=== PATIENT | female | born 1995 | race African-American/Black ===

== ENCOUNTER 2017-03-30 18:15 | Emergency (ER) | payer OTHER ==
[~2017-03-30] VITALS: Ht 170.2 cm; Wt 113.0 kg
[~2017-03-30 18:15] MED LIST: AMOXICILLIN500 MG PO; AMOXIL400 MG/5 M PO; AUGMENTINES600 PO; CIPRO HC AD; DENIES CURRENT MEDS; MOTRIN200 MG PO; NAPROSYN500 MG PO; NO MEDS; TRAMADOL HCL50 MG OR; ZOFRAN ODT4 MG PO
[2017-03-30 19:33] LABS: INFLUENZA A NONE DETECTED (NONE DETECT); INFLUENZA B NONE DETECTED (NONE DETECT)
[2017-03-30] MEDS ORDERED: AMOXICILLIN500 MG PO (19:45)
[2017-03-30 19:59] VITALS: BP 128/72
== END 2017-03-30 19:59 | disposition home or self-care (01) | DRG 153 ==
LOC: ED 18:15
PROVIDERS: Emergency Medicine
DX: J06.9 Acute upper respiratory infection, unspecified (principal); J02.9 Acute pharyngitis, unspecified; R09.81 Nasal congestion; M54.2 Cervicalgia; R09.89 Other specified symptoms and signs involving the circulatory and respiratory systems; R50.9 Fever, unspecified

== ENCOUNTER 2017-06-19 16:25 | Emergency (ER) | payer OTHER ==
[~2017-06-19] VITALS: Ht 170.2 cm; Wt 113.0 kg
[2017-06-19] MEDS ORDERED: MOTRIN400 MG PO (17:40)
[2017-06-19 17:50] VITALS: BP 129/74
== END 2017-06-19 17:50 | disposition home or self-care (01) | DRG 552 ==
LOC: ED 16:25
DX: S16.1XXA Strain of muscle, fascia and tendon at neck level, initial encounter (principal); X58.XXXA Exposure to other specified factors, initial encounter

== ENCOUNTER 2018-02-23 21:16 | Emergency (ER) | payer MEDICAID ==
[~2018-02-23] VITALS: Ht 350.5 cm; Wt 110.0 kg
[~2018-02-23 21:16] MED LIST changes: +MOTRIN400 MG PO
[2018-02-23] MEDS ORDERED: AMOXICILLIN500 MG PO (22:10)
[2018-02-23 22:21] VITALS: BP 130/62
== END 2018-02-23 22:21 | disposition home or self-care (01) ==
LOC: ED 21:16
DX: J02.9 Acute pharyngitis, unspecified (principal); R05 Cough; R06.7 Sneezing; R51 Headache

== ENCOUNTER 2018-05-31 03:56 | Emergency (ER) | payer MEDICAID ==
[~2018-05-31] VITALS: Ht 172.7 cm; Wt 90.9 kg
[2018-05-31 04:40] VITALS: BP 114/71
== END 2018-05-31 04:42 | disposition home or self-care (01) ==
LOC: ED 03:56
DX: S90.02XA Contusion of left ankle, initial encounter (principal); W21.89XA Striking against or struck by other sports equipment, initial encounter; Y93.51 Activity, roller skating (inline) and skateboarding; Y92.331 Roller skating rink as the place of occurrence of the external cause

== ENCOUNTER 2018-09-09 12:03 | Emergency (ER) | payer MEDICAID ==
[~2018-09-09] VITALS: Ht 172.7 cm; Wt 91.0 kg
[2018-09-09 13:04] LABS: HEMATOCRIT 40.8 % (37.0-47.0); HEMOGLOBIN 13.7 g/dl (12.0-16.0); IMMATURE GRANULOCYTES 0.2 % (0.0-5.0); MEAN CELL VOLUME 90.3 fL CALC (80.0-100.0); MEAN CORPUSCULAR HGB 30.3 pG CALC (26.0-32.0); MEAN CORPUSCULAR HGB CONC 33.6 g/L CALC (32.0-36.0); NEUT# 3.47 thou/uL (2.00-7.15); RED BLOOD COUNT 4.52 mill/uL (4.20-5.60); RED CELL DISTRI WIDTH 12.7 % (11.5-15.5)
[2018-09-09 13:14] LABS: ALBUMIN 4.3 g/dL (3.2-5.0); ALKALINE PHOSPHATASE 94 u/l (38-126); AMYLASE 78 u/l (30-110); ANION GAP 14 (6-22 (CALC)); BUN 14 mg/dL (7-17); BUN/CREATININE RATIO 20 (12-20 (CALC)); CARBON DIOXIDE 23 mmol/l (22-30); CHLORIDE 106 mmol/l (95-108); CREATININE 0.7 mg/dL (0.5-1.0); GFR > 60 ML/MIN (>=60 (CALC)); GFR FOR AFR.AMER. > 60 ML/MIN (>=60 (CALC)); LIPASE 156 u/l (23-300); POTASSIUM 4.1 mmol/l (3.5-5.1); SGOT/AST 31 u/l (14-36); SODIUM 140 mmol/l (137-146); TOTAL PROTEIN 7.7 g/dL (6.3-8.2)
[2018-09-09 13:17] LABS: BILIRUBIN, TOTAL 0.6 mg/dL (0.0-1.4)
[2018-09-09 16:12] LABS: URINE BILIRUBIN - DIPSTICK NEGATIVE (NEGATIVE); URINE BLOOD DIPSTICK NEGATIVE (NEGATIVE); URINE COLOR YELLOW; URINE GLUCOSE - DIPSTICK NEGATIVE (NEGATIVE); URINE KETONE NEGATIVE (NEGATIVE); URINE LEUK ESTERASE NEGATIVE (NEGATIVE); URINE NITRITE - DIPSTICK NEGATIVE (Negative); URINE PROTEIN - DIPSTICK NEGATIVE (NEG-TRACE); URINE UROBILINOGEN - DIPSTICK 0.2 E.U./dL (0.2)
[2018-09-09] MEDS ORDERED: PHENERGAN25 MG/TAB PO (16:32)
[2018-09-09 16:45] VITALS: BP 124/72
== END 2018-09-09 16:58 | disposition home or self-care (01) ==
LOC: ED 12:03
PROVIDERS: Family Medicine
DX: K52.9 Noninfective gastroenteritis and colitis, unspecified (principal); R10.84 Generalized abdominal pain; R11.10 Vomiting, unspecified; R19.7 Diarrhea, unspecified

== ENCOUNTER 2018-10-27 13:54 | Emergency (ER) | payer MEDICAID ==
[~2018-10-27] VITALS: Ht 172.7 cm; Wt 90.0 kg
[~2018-10-27 13:54] MED LIST changes: +PHENERGAN25 MG/TAB PO
[2018-10-27 16:05] LABS: HEMATOCRIT 39.9 % (37.0-47.0); HEMOGLOBIN 13.5 g/dl (12.0-16.0); IMMATURE GRANULOCYTES 0.2 % (0.0-5.0); MEAN CELL VOLUME 89.3 fL CALC (80.0-100.0); MEAN CORPUSCULAR HGB 30.2 pG CALC (26.0-32.0); MEAN CORPUSCULAR HGB CONC 33.8 g/L CALC (32.0-36.0); NEUT# 3.93 thou/uL (2.00-7.15); RED BLOOD COUNT 4.47 mill/uL (4.20-5.60); RED CELL DISTRI WIDTH 12.7 % (11.5-15.5)
[2018-10-27 16:07] LABS: URINE BILIRUBIN - DIPSTICK NEGATIVE (NEGATIVE); URINE BLOOD DIPSTICK LARGE (NEGATIVE); URINE COLOR YELLOW; URINE GLUCOSE - DIPSTICK NEGATIVE (NEGATIVE); URINE KETONE NEGATIVE (NEGATIVE); URINE LEUK ESTERASE NEGATIVE (NEGATIVE); URINE NITRITE - DIPSTICK NEGATIVE (Negative); URINE PROTEIN - DIPSTICK NEGATIVE (NEG-TRACE)
[2018-10-27 16:18] LABS: URINE WBC 0-2 WBC/hpf (0-5)
[2018-10-27 16:19] LABS: BUN 10 mg/dL (7-17); BUN/CREATININE RATIO 14 (12-20 (CALC)); CARBON DIOXIDE 26 mmol/l (22-30); CHLORIDE 105 mmol/l (95-108); CREATININE 0.8 mg/dL (0.5-1.0); GFR > 60 ML/MIN (>=60 (CALC)); GFR FOR AFR.AMER. > 60 ML/MIN (>=60 (CALC)); SODIUM 141 mmol/l (137-146)
[2018-10-27 16:19] LABS: URINE AMORPH SEDIMENT MANY hpf (NONE-FEW); URINE SQUAMOUS EPITHELIAL CELL FEW EPI/hpf (0-FEW)
[2018-10-27 16:21] LABS: ANION GAP 14 (6-22 (CALC)); POTASSIUM 4.1 mmol/l (3.5-5.1)
[2018-10-27 17:01] VITALS: BP 138/88
== END 2018-10-27 17:00 | disposition home or self-care (01) ==
LOC: ED 13:54
PROVIDERS: Family Medicine
DX: N94.6 Dysmenorrhea, unspecified (principal)

== ENCOUNTER 2019-10-19 14:40 | Emergency (ER) | payer SELFPAY ==
[~2019-10-19] VITALS: Ht 172.7 cm; Wt 90.9 kg
[2019-10-19 15:57] VITALS: BP 129/69
== END 2019-10-19 15:57 | disposition home or self-care (01) | DRG 556 ==
LOC: ED 14:40
DX: M79.672 Pain in left foot (principal)

== ENCOUNTER 2020-10-18 08:53 | Emergency (ER) | payer OTHER ==
[~2020-10-18] VITALS: Ht 172.7 cm; Wt 81.0 kg
[2020-10-18 12:26] VITALS: BP 147/91
== END 2020-10-18 13:10 | disposition home or self-care (01) | DRG 103 ==
LOC: ED 08:53
DX: R51.9 Headache, unspecified (principal); M54.5 Low back pain; M54.6 Pain in thoracic spine; V49.40XA Driver injured in collision with unspecified motor vehicles in traffic accident, initial encounter

== ENCOUNTER 2020-10-19 20:09 | Emergency (ER) | payer SELFPAY | END 2020-10-19 22:41 | disposition home or self-care (01) | DRG 951 | LOC: ED 20:09 → LWOBS 22:40 | DX: Z53.21 Procedure and treatment not carried out due to patient leaving prior to being seen by health care provider (principal) ==

== ENCOUNTER 2020-12-20 20:01 | Emergency (ER) | payer SELFPAY ==
[~2020-12-20] VITALS: Ht 172.7 cm; Wt 91.0 kg
[2020-12-20 22:52] VITALS: BP 132/75
== END 2020-12-20 23:04 | disposition home or self-care (01) | DRG 563 ==
LOC: ED 20:01
DX: S93.401A Sprain of unspecified ligament of right ankle, initial encounter (principal); S93.601A Unspecified sprain of right foot, initial encounter; X50.0XXA Overexertion from strenuous movement or load, initial encounter; Y92.410 Unspecified street and highway as the place of occurrence of the external cause

== ENCOUNTER 2021-02-27 08:33 | Emergency (ER) | payer SELFPAY ==
[~2021-02-27] VITALS: Ht 172.7 cm; Wt 120.0 kg
[2021-02-27 10:54] VITALS: BP 113/77
== END 2021-02-27 10:54 | disposition home or self-care (01) | DRG 179 ==
LOC: ED 08:33
DX: U07.1 COVID-19 (principal)

== ENCOUNTER 2021-11-06 19:22 | Emergency (ER) | payer SELFPAY ==
[~2021-11-06] VITALS: Ht 172.7 cm; Wt 90.9 kg
[2021-11-06 19:49] VITALS: BP 117/64
[2021-11-06 22:15] VITALS: BP 116/62
[2021-11-06 22:28] VITALS: BP 116/62
== END 2021-11-06 22:32 | disposition home or self-care (01) | DRG 556 ==
LOC: ED 19:22
DX: M79.645 Pain in left finger(s) (principal)

== ENCOUNTER 2022-03-25 08:14 | Emergency (ER) | payer BC ==
[~2022-03-25] VITALS: Ht 172.7 cm; Wt 91.0 kg
[2022-03-25] MEDS ORDERED: NAPROXEN500 MG PO (08:35)
[2022-03-25 08:59] VITALS: BP 112/65
== END 2022-03-25 09:13 | disposition home or self-care (01) | DRG 159 ==
LOC: ED 08:14
DX: M26.622 Arthralgia of left temporomandibular joint (principal)

== ENCOUNTER 2022-04-18 20:55 | Emergency (ER) | payer BC ==
[~2022-04-18] VITALS: Ht 172.7 cm; Wt 131.4 kg
[~2022-04-18 20:55] MED LIST changes: +NAPROXEN500 MG PO
[2022-04-18 23:42] VITALS: BP 135/75
[2022-04-18] MEDS ORDERED: AMOXICILLIN500 MG PO (23:53)
[2022-04-19 00:07] VITALS: BP 135/75
== END 2022-04-19 00:26 | disposition home or self-care (01) | DRG 816 ==
LOC: ED 20:55
DX: L04.0 Acute lymphadenitis of face, head and neck (principal); H92.02 Otalgia, left ear

== ENCOUNTER 2022-10-01 20:57 | Emergency (ER) | payer SELFPAY ==
[~2022-10-01] VITALS: Ht 172.7 cm; Wt 104.0 kg
[2022-10-01 21:08] VITALS: BP 119/74
[2022-10-01 21:16] VITALS: BP 109/65
[2022-10-01 21:30] VITALS: BP 120/62
[2022-10-01 21:46] VITALS: BP 116/64
[2022-10-01 22:00] VITALS: BP 119/76
[2022-10-01 22:16] VITALS: BP 138/75
== END 2022-10-01 22:20 | disposition home or self-care (01) | DRG 866 ==
LOC: ED 20:57
DX: B34.9 Viral infection, unspecified (principal); Z20.822 Contact with and (suspected) exposure to COVID-19

== ENCOUNTER 2023-10-07 20:54 | Emergency (ER) | payer SELFPAY ==
[~2023-10-07] VITALS: Ht 172.7 cm; Wt 110.0 kg
[~2023-10-07 20:54] MED LIST changes: +DICYCLOMINE HCL20 MG PO
[2023-10-07 21:05] VITALS: BP 123/68
[2023-10-07] MEDS ORDERED: ONDANSETRON 4 MG/TAB ODT PO ONE (21:15)
[2023-10-07] MEDS ORDERED: ACETAMINOPHEN 500 MG TAB PO ONE (21:15)
[2023-10-07] MEDS ORDERED: IBUPROFEN 600 MG/TAB PO ONE (21:15)
[2023-10-07 21:16] VITALS: BP 115/92
[2023-10-07 21:36] LABS: BASO% 0.5 % (0-3); EOS% 0.5 % (0-8); HEMATOCRIT 38.4 % (37.0-47.0); HEMOGLOBIN 12.9 g/dl (12.0-16.0); IMMATURE GRANULOCYTES 0.1 % (0.0-5.0); LYMPH% 13.1 % (15-41); MEAN CELL VOLUME 90.1 fL CALC (80.0-100.0); MEAN CORPUSCULAR HGB 30.3 pG CALC (26.0-32.0); MEAN CORPUSCULAR HGB CONC 33.6 g/dL CAL (32.0-36.0); MONO% 4.4 % (2-13); NEUT# 6.22 thou/uL (2.00-7.15); NEUT% 81.4 % (42-76); RED BLOOD COUNT 4.26 mill/uL (4.20-5.60); RED CELL DISTRI WIDTH 12.7 % (11.5-15.5)
[2023-10-07 21:58] LABS: ALBUMIN 4.5 g/dL (3.2-5.0); BILIRUBIN, TOTAL 0.3 mg/dL (0.02-1.3); CREATININE 1.1 mg/dL (0.5-1.0); POTASSIUM 3.6 mmol/l (3.5-5.1); TOTAL PROTEIN 8.1 g/dL (6.3-8.2)
[2023-10-07 22:01] VITALS: BP 120/68
[2023-10-07] MEDS ORDERED: ZOFRAN4 MG/TAB PO ×2 (22:09→22:41)
[2023-10-07 22:16] VITALS: BP 110/61
[2023-10-07 22:40] VITALS: BP 110/61
== END 2023-10-07 22:40 | disposition home or self-care (01) | DRG 866 ==
LOC: ED 20:54
PROVIDERS: Family Medicine
DX: B34.9 Viral infection, unspecified (principal); Z20.822 Contact with and (suspected) exposure to COVID-19

== ENCOUNTER → 2023-10-21 | Emergency (ER) | payer OTHER ==
[~2023-10-21] MED LIST changes: +Acetaminophen 300 MG/Codeine 30 MG/COMBO PO ONE; +NAPROXEN 250 MG/TAB PO ONE; +PENICILLIN G BENZATHINE 1.2 MU/2 ML SYR IM ONE; +TYLENOL # 31 TA1 PO; +ZOFRAN4 MG/TAB PO
== END | disposition home or self-care (01) | DRG 159 ==
LOC: ED 03:50
DX: K01.1 Impacted teeth (principal)
CPT/HCPCS: J0561

== ENCOUNTER 2023-11-08 15:06 | Emergency (ER) | payer OTHER ==
[~2023-11-08] VITALS: Ht 172.7 cm; Wt 99.0 kg
[~2023-11-08 15:06] MED LIST changes: -Acetaminophen 300 MG/Codeine 30 MG/COMBO PO ONE; -NAPROXEN 250 MG/TAB PO ONE; -PENICILLIN G BENZATHINE 1.2 MU/2 ML SYR IM ONE
[2023-11-08 15:16] VITALS: BP 113/92
[2023-11-08] MEDS ORDERED: FAMOTIDINE 20 MG/TAB PO ONE (15:20)
[2023-11-08] MEDS ORDERED: DiphenhydrAMINE HCL 50 MG/ML SDV IM ONE (15:20)
[2023-11-08] MEDS ORDERED: methylPREDNISolone SODIUM SUCC 125 MG/2 ML SDV IM ONE (15:20)
[2023-11-08 15:30] VITALS: BP 126/70
[2023-11-08 16:27] LABS: BASO% 0.4 % (0-3); EOS% 1.3 % (0-8); HEMATOCRIT 37.9 % (37.0-47.0); HEMOGLOBIN 12.7 g/dl (12.0-16.0); LYMPH% 31.6 % (15-41); MEAN CELL VOLUME 90.9 fL CALC (80.0-100.0); MEAN CORPUSCULAR HGB 30.5 pG CALC (26.0-32.0); MEAN CORPUSCULAR HGB CONC 33.5 g/dL CAL (32.0-36.0); MONO% 4.3 % (2-13); NEUT# 3.45 thou/uL (2.00-7.15); NEUT% 62.4 % (42-76); RED BLOOD COUNT 4.17 mill/uL (4.20-5.60); RED CELL DISTRI WIDTH 12.5 % (11.5-15.5)
[2023-11-08 16:49] LABS: ALBUMIN 4.2 g/dL (3.2-5.0); BILIRUBIN, TOTAL 0.4 mg/dL (0.02-1.3); CREATININE 0.8 mg/dL (0.5-1.0); POTASSIUM 3.3 mmol/l (3.5-5.1); TOTAL PROTEIN 7.7 g/dL (6.3-8.2)
[2023-11-08] MEDS ORDERED: POTASSIUM CHLORIDE 20 MEQ/TAB PO ONE (16:55)
[2023-11-08 17:08] VITALS: BP 109/69
[2023-11-08 17:10] VITALS: BP 109/69
[2023-11-09] MEDS ORDERED: MEDDOSEPAK PO (14:49)
[2023-11-09] MEDS ORDERED: HYDROXYZ HCL25 MG PO (14:49)
== END 2023-11-08 17:10 | disposition home or self-care (01) | DRG 607 ==
LOC: ED 15:06
PROVIDERS: Nurse Practitioner Family
DX: L50.0 Allergic urticaria (principal); E87.6 Hypokalemia

== ENCOUNTER 2023-11-09 14:29 | Emergency (ER) | payer OTHER ==
[~2023-11-09] VITALS: Ht 172.7 cm; Wt 90.0 kg
[2023-11-09] MEDS ORDERED: HYDROXYZ HCL25 MG PO (14:49)
[2023-11-09] MEDS ORDERED: MEDDOSEPAK PO (14:49)
[2023-11-09 15:24] VITALS: BP 131/77
== END 2023-11-09 15:36 | disposition home or self-care (01) | DRG 607 ==
LOC: ED 14:29
DX: L50.0 Allergic urticaria (principal)

== ENCOUNTER 2024-02-15 19:13 | Emergency (ER) | payer OTHER ==
[~2024-02-15] VITALS: Ht 175.3 cm; Wt 90.0 kg
[~2024-02-15 19:13] MED LIST changes: +HYDROXYZ HCL25 MG PO; +MEDDOSEPAK PO
[2024-02-15 19:50] VITALS: BP 125/84
[2024-02-15 20:02] VITALS: BP 146/74
[2024-02-15] MEDS ORDERED: NAPROXEN 250 MG/TAB PO ONE (20:15)
[2024-02-15 20:23] LABS: URINE BILIRUBIN - DIPSTICK Negative (NEGATIVE); URINE BLOOD DIPSTICK Negative (NEGATIVE); URINE GLUCOSE - DIPSTICK Negative (NEGATIVE); URINE KETONE Trace mg/dL (NEGATIVE); URINE LEUK ESTERASE Negative (NEGATIVE); URINE NITRITE - DIPSTICK Negative (Negative); URINE PH 5.5 (4.5-8.0); URINE PROTEIN - DIPSTICK Negative (NEG-TRACE); URINE SPECIFIC GRAVITY 1.025; URINE UROBILINOGEN - DIPSTICK 0.2 E.U./dL (0.2)
[2024-02-15 20:24] LABS: URINE COLOR Yellow
[2024-02-15] MEDS ORDERED: EC-NAPROXEN500 MG PO (21:32)
[2024-02-15 22:00] VITALS: BP 146/74
== END 2024-02-15 22:00 | disposition home or self-care (01) | DRG 552 ==
LOC: ED 19:13
PROVIDERS: Family Medicine
DX: M54.50 Low back pain, unspecified (principal)